=== PATIENT | male | born 1965 | race Caucasian/White ===

== ENCOUNTER 2017-04-20 19:27 | Observation (INO) | payer OTHER ==
[~2017-04-20] VITALS: Ht 177.8 cm; Wt 86.5 kg
[~2017-04-20 19:27] MED LIST: ASPCH81X PO; KFL/250 PO; METO-478 PO; NITR0.4S UT
[2017-04-20] MEDS ORDERED: ASPIRIN 81 MG CHEW PO STA (19:56)
[2017-04-20] MEDS ORDERED: ONDANSETRON INJ 2 MG/ML 2 ML VIAL IV STA (19:56)
--- NOTE | 2017-04-20 19:58 | EMERGENCY ROOM VISIT NOTE ---
History Report prepared by Cesia: Palomo Leiva Under the Supervision of: Dr. Juaquin Monahan M.D. First contact with patient: 19:35 Chief Complaint: CHEST PAIN Stated Complaint: TIGHTNESS OF CHEST, CARIAC HX, SOB, TINGLING History of Present Illness The patient is a 51 year old white male with a past medical history of a coronary stent placement who presents to the ED with a cc of constant chest heaviness that began last night wile sitting and relaxing. Positive arm numbness and tingling which resolved, a mild cough, and sweating last night. Negative shortness of breath, swelling in the legs, history of blood clots, recent car or plane travel, worsening with walking or lying down, fevers, chills. The patient reports that he went hiking and hunting yesterday, and he also drank a lot of caffeinated soda which is abnormal for him. He notes that he takes aspirin and Plavix. The patient denies any alcohol use, tobacco use, and drug use. Source of History: patient Onset: yesterday Position: chest Quality: other (heaviness) Timing: constant Associated Symptoms: + diaphoresis, + cough, No fevers, No chills, No SOB Note: Associated symptoms: left arm pain Review of Systems See HPI for pertinent positives and negatives. A total of ten systems were reviewed and were otherwise negative. Past Medical & Surgical Surgical Problems: (1) Stented coronary artery Social History Smoking Status: Current Every Day Smoker Marital Status: Housing Status: lives with family Occupation Status: employed Current/Historical Medications Scheduled Aspirin (Aspirin Chewable), 81 MG PO HS Atorvastatin (Lipitor), 40 MG PO HS Clopidogrel (Plavix), 75 MG PO HS Nitroglycerin (Nitrostat), 0.4 MG UT PRN Allergies Coded Allergies: No Known Allergies (Unverified , 04/20/17) Physical Exam Vital Signs Date Time Temp Pulse Resp B/P (MAP) Pulse Ox O2 Delivery O2 Flow Rate FiO2 04/20/17 20:42 79 04/20/17 20:02 96 Room Air 04/20/17 19:57 96 Room Air 04/20/17 19:30 36.8 84 16 149/98 96 Room Air Physical Exam GENERAL: Awake, alert, well-appearing, NAD HENT: Normocephalic, atraumatic. EYES: Normal conjunctiva. Sclera non-icteric. NECK: Supple. No nuchal rigidity. FROM. RESPIRATORY: CTAB, no rhonchi, wheezing, crackles CARDIAC: RRR, no MRG ABDOMEN: Soft, NTND, BS+ MSK: Negative Jasbir's sign. No calf pain. No chest wall TTP, no LE edema NEURO: GCS 15, CN 2-12 intact, moves all 4s on command SKIN: No rash or jaundice noted. Medical Decision & Procedures ER Provider Diagnostic Interpretation: Radiology results as stated below per my review and radiologist interpretation: CHEST ONE VIEW PORTABLE CLINICAL HISTORY: Chest pain. COMPARISON STUDY: No previous studies for comparison. FINDINGS: Lung volumes are normal. No pneumothorax or pleural effusion is present. Cardiac size is within normal limits. Pulmonary vascularity is normal. There is no consolidation to suggest pneumonia. IMPRESSION: No acute cardiopulmonary findings. Electronically signed by: Onel Cespedes M.D. 04/20/2017 8:55 PM Dictated Date/Time: 04/20/2017 8:55 PM Laboratory Results 04/20/17 19:57 Red Blood Count 4.52, Mean Corpuscular Volume 92.9, Mean Corpuscular Hemoglobin 33.6, Mean Corpuscular Hemoglobin Concent 36.2, Mean Platelet Volume 9.7, Neutrophils (%) (Auto) 64.1, Lymphocytes (%) (Auto) 27.3, Monocytes (%) (Auto) 6.8, Eosinophils (%) (Auto) 1.0, Basophils (%) (Auto) 0.5, Neutrophils # (Auto) 3.77, Lymphocytes # (Auto) 1.61, Monocytes # (Auto) 0.40, Eosinophils # (Auto) 0.06, Basophils # (Auto) 0.03 04/20/17 19:57 Test 04/20/17 19:57 White Blood Count 5.89 K/uL (4.8-10.8) Red Blood Count 4.52 M/uL (4.7-6.1) Hemoglobin 15.2 g/dL (14.0-18.0) Hematocrit 42.0 % (42-52) Mean Corpuscular Volume 92.9 fL (80-100) Mean Corpuscular Hemoglobin 33.6 pg (25-34) Mean Corpuscular Hemoglobin Concent 36.2 g/dl (32-36) Platelet Count 198 K/uL (130-400) Mean Platelet Volume 9.7 fL (7.4-10.4) Neutrophils (%) (Auto) 64.1 % Lymphocytes (%) (Auto) 27.3 % Monocytes (%) (Auto) 6.8 % Eosinophils (%) (Auto) 1.0 % Basophils (%) (Auto) 0.5 % Neutrophils # (Auto) 3.77 K/uL (1.4-6.5) Lymphocytes # (Auto) 1.61 K/uL (1.2-3.4) Monocytes # (Auto) 0.40 K/uL (0.11-0.59) Eosinophils # (Auto) 0.06 K/uL (0-0.5) Basophils # (Auto) 0.03 K/uL (0-0.2) RDW Standard Deviation 43.6 fL (36.4-46.3) RDW Coefficient of Variation 12.8 % (11.5-14.5) Immature Granulocyte % (Auto) 0.3 % Immature Granulocyte # (Auto) 0.02 K/uL (0.00-0.02) Prothrombin Time 10.5 SECONDS (9.0-12.0) Prothromb Time International Ratio 1.0 (0.9-1.1) Activated Partial Thromboplast Time 23.8 SECONDS (21.0-31.0) Partial Thromboplastin Ratio 0.9 Anion Gap 9.0 mmol/L (3-11) Est Creatinine Clear Calc Drug Dose 83.0 ml/min Estimated GFR () 90.2 Estimated GFR (Non- 77.9 BUN/Creatinine Ratio 16.5 (10-20) Calcium Level 8.7 mg/dl (8.5-10.1) Total Bilirubin 0.7 mg/dl (0.2-1) Direct Bilirubin 0.2 mg/dl (0-0.2) Aspartate Amino Transf (AST/SGOT) 34 U/L (15-37) Alanine Aminotransferase (ALT/SGPT) 56 U/L (12-78) Alkaline Phosphatase 76 U/L (45-117) Troponin I < 0.015 ng/ml (0-0.045) Pro-B-Type Natriuretic Peptide 11 pg/ml (0-900) Total Protein 7.8 gm/dl (6.4-8.2) Albumin 4.1 gm/dl (3.4-5.0) Lipase 197 U/L (73-393) Laboratory results reviewed by me Medications Administered Medications (Trade) Dose Ordered Sig/Ryan Route Start Time Stop Time Status Last Admin Dose Admin Nitroglycerin (Nitrostat Tab) 0.4 mg Q5M PRN SL 04/20/17 20:00 05/20/17 19:59 04/20/17 20:09 0.4 MG Aspirin (Aspirin Chew) 324 mg NOW STAT PO 04/20/17 19:56 04/20/17 19:58 DC 04/20/17 20:09 324 MG ECG Indication: chest pain Rate (beats per minute): 78 Rhythm: normal sinus Findings: other (Normal Interval. Normal axis. No STS changes or TWI) ED Course 1934: The patient was evaluated in room C4. A complete history and physical exam was performed. 2049: Discussed the patient's case Jabari Larios. The patient will be evaluated for further treatment and disposition. 2099: I reevaluated the patient, and I discussed the treatment plan with him and was agreeable. Medical Decision The patient is a 51 year old white male with a past medical history of a stent placement who presents to the ED with a cc of constant chest heaviness that began last night wile sitting and relaxing. Triage Nursing notes reviewed. The patient's presentation and history were concerning for etiologies such as cardiac ischemia, aortic dissection, pulmonary embolism, pneumonia, pneumothorax , musculoskeletal, infections, pericarditis, myocarditis, esophageal rupture, gastrointestinal, as well as others were entertained. Patient was seen and evaluated the bedside. Patient states that yesterday in the evening he did have some chest tightness. Patient also describes some numbness and tingling in his left upper extremity. He also describes some diaphoresis. Patient states that symptoms chest tightness makes him feel somewhat short of breath although he doesn't complain of any dyspnea on exertion no exertional chest pain. Patient denies any lower extremity swelling , recent car or plane travel, history of DVT or PE. Patient did not take any nitroglycerin to take a baby aspirin prior to arrival. Patient does see [facility] cardiology. Patient did have an LAD stent placed in 2011. Patient has not had recent provocative testing per patient. Patient received nitroglycerin and aspirin. Patient's pain mildly improved. He did describe this pain as chest tightness which she stated improved somewhat. Patient's EKG is unremarkable patient has a negative troponin. I did speak with the hospitalist team. The patient would probably benefit from further evaluation and treatment. Patient was admitted. Medication Reconcilliation Current Medication List: was personally reviewed by me Blood Pressure Screening Patient's blood pressure: Elevated blood pressure Monitored by the hospitalist Consults Time Called: 2044 Consulting Physician: Jabari Larios Returned Call: 2049 Discussed the patient's case with Jabari Larios. The patient will be evaluated for further treatment and disposition. Impression Primary Impression: Atypical chest pain Additional Impression: CAD S/P percutaneous coronary angioplasty Scribe Attestation The scribe's documentation has been prepared under my direction and personally reviewed by me in its entirety. I confirm that the note above accurately reflects all work, treatment, procedures, and medical decision making performed by me. Departure Information Dispostion Being Evaluated By Hospitalist Referrals Romel Bautista M.D. (PCP) Patient Instructions My [facility] Problem Qualifiers
[2017-04-20] MEDS ORDERED: NITROGLYCERIN 0.4 MG SL PER TAB CHARGE SL PRN ×2 (20:00→21:30)
[2017-04-20 20:06] LABS: BASO % 0.5 %; BASO ABS # 0.03 K/uL (0-0.2); COMPLETE YES; IG% 0.3 %; LYMPH % 27.3 %; LYMPH ABS # 1.61 K/uL (1.2-3.4); MEAN CELL VOLUME 92.9 fL (80-100); MEAN CORPUSCULAR HEMOGLOBIN 33.6 pg (25-34); MEAN CORPUSCULAR HGB CONC 36.2 g/dl (32-36); MEAN PLATELET VOLUME 9.7 fL (7.4-10.4); MONO % 6.8 %; NEUT % 64.1 %; PLATELET COUNT 198 K/uL (130-400); RED BLOOD COUNT 4.52 M/uL (4.7-6.1); WHITE BLOOD COUNT 5.89 K/uL (4.8-10.8)
[2017-04-20] MEDS ORDERED: CLOP1TAB15 PO (20:16)
[2017-04-20] MEDS ORDERED: ATOR-24 PO (20:16)
[2017-04-20 20:24] LABS: ALT/SGPT 56 U/L (12-78); AST/SGOT 34 U/L (15-37); BLOOD UREA NITROGEN 18 mg/dl (7-18); BUN/CREATININE RATIO 16.5 (10-20); CALCIUM 8.7 mg/dl (8.5-10.1); CARBON DIOXIDE 27 mmol/L (21-32); CHLORIDE 106 mmol/L (98-107); GLUCOSE 99 mg/dl (70-99); POTASSIUM 3.8 mmol/L (3.5-5.1); SODIUM 142 mmol/L (136-145)
[2017-04-20 20:26] LABS: PARTIAL THROMBOPLASTIN RATIO 0.9; PROTHROMBIN TIME (PATIENT) 10.5 SECONDS (9.0-12.0)
[2017-04-20 20:30] LABS: ALKALINE PHOSPHATASE 76 U/L (45-117)
--- NOTE | 2017-04-20 20:57 | DIAGNOSTIC IMAGING REPORT ---
CHEST ONE VIEW PORTABLE CLINICAL HISTORY: Chest pain. COMPARISON STUDY: No previous studies for comparison. FINDINGS: Lung volumes are normal. No pneumothorax or pleural effusion is present. Cardiac size is within normal limits. Pulmonary vascularity is normal. There is no consolidation to suggest pneumonia. IMPRESSION: No acute cardiopulmonary findings. Electronically signed by: Onel Cespedes M.D. 04/20/2017 8:55 PM Dictated Date/Time: 04/20/2017 8:55 PM
[2017-04-20] MEDS ORDERED: ATORVASTATIN 40 MG TAB PO SCH (21:30)
[2017-04-20] MEDS ORDERED: CLOPIDOGREL BISULFATE 75 MG TAB PO SCH (21:30)
--- NOTE | 2017-04-20 21:50 | History and Physical ---
History & Physical Date & Time of Service: Apr 20, 2017 ~ 21:00 Chief Complaint: Chest Pain Primary Care Physician: Romel Bautista M.D. History of Present Illness 51 year old male who presents to the ED with chest pain. Patient reports he developed chest pain last evening while at rest. He reports the pain as located in the middle of his chest and describes it as a pressure. He also had associated diaphoresis. He reports symptoms lasted for 1-2 hours. He then went to bed. When he woke up this morning he reports the discomfort was still there however not as severe. He rates his discomfort throughout the day today as a 1-2 /10. He notes that yesterday he was out hunting for most of the day. He also drank soda throughout the day which he typically does not do. He denies any causative or alleviating factors. He received SL nitro in the ED which had no effect on the chest pain. He reports he has felt like it was hard for him to take a deep breath however denies shortness of breath. He denies lightheadedness , dizziness, or syncopal events. No abdominal pain, nausea, vomiting, or diarrhea. He denies fever and chills. No urinary symptoms. In the ED, patient's initial troponin is negative and EKG does not show any acute ST changes. He was given full dose ASA and SL nitro x 1. Past Medical/Surgical History Medical Problems: (1) CAD (coronary artery disease) Permanent Comment: 04/2012 - TASH to LAD Status: Chronic Surgical Problems: (1) H/O arthroscopic knee surgery Status: Chronic (2) History of vasectomy Status: Chronic Family History FH: CAD (coronary artery disease) FATHER Social History Smoking Status: Former Smoker Alcohol Use: ~ 10 beers/week Marital Status: Occupational Status: employed Immunizations History of Tetanus Vaccine?: Yes Tetanus Immunization Date: Jul 11, 2012 Allergies Coded Allergies: No Known Allergies (Unverified , 04/20/17) Home Medications Scheduled Aspirin (Aspirin Chewable), 81 MG PO HS Atorvastatin (Lipitor), 40 MG PO HS Clopidogrel (Plavix), 75 MG PO HS Nitroglycerin (Nitrostat), 0.4 MG UT PRN Review of Systems ROS per HPI, all other systems reviewed and negative Physical Exam Vital Signs Date Time Temp Pulse Resp B/P (MAP) Pulse Ox O2 Delivery O2 Flow Rate FiO2 04/20/17 20:42 79 04/20/17 20:02 96 Room Air 04/20/17 19:57 96 Room Air 04/20/17 19:30 36.8 84 16 149/98 96 Room Air General Appearance: WD/WN, no apparent distress Head: normocephalic, atraumatic Eyes: normal inspection, EOMI, sclerae normal ENT: hearing grossly normal, + pertinent finding (mucous membranes moist) Neck: supple, no JVD, trachea midline Respiratory/Chest: chest non-tender, lungs clear, normal breath sounds, no respiratory distress Cardiovascular: regular rate, rhythm, no edema, normal peripheral pulses Abdomen/GI: normal bowel sounds, non tender, soft, no organomegaly Extremities/Musculoskelatal: normal inspection, no calf tenderness, normal capillary refill Neurologic/Psych: no motor/sensory deficits, alert, normal mood/affect, oriented x 3 Skin: normal color, warm/dry Diagnostics Laboratory Results Results Past 24 Hours Test 04/20/17 19:57 Range/Units White Blood Count 5.89 4.8-10.8 K/uL Red Blood Count 4.52 4.7-6.1 M/uL Hemoglobin 15.2 14.0-18.0 g/dL Hematocrit 42.0 42-52 % Mean Corpuscular Volume 92.9 80-100 fL Mean Corpuscular Hemoglobin 33.6 25-34 pg Mean Corpuscular Hemoglobin Concent 36.2 32-36 g/dl Platelet Count 198 130-400 K/uL Mean Platelet Volume 9.7 7.4-10.4 fL Neutrophils (%) (Auto) 64.1 % Lymphocytes (%) (Auto) 27.3 % Monocytes (%) (Auto) 6.8 % Eosinophils (%) (Auto) 1.0 % Basophils (%) (Auto) 0.5 % Neutrophils # (Auto) 3.77 1.4-6.5 K/uL Lymphocytes # (Auto) 1.61 1.2-3.4 K/uL Monocytes # (Auto) 0.40 0.11-0.59 K/uL Eosinophils # (Auto) 0.06 0-0.5 K/uL Basophils # (Auto) 0.03 0-0.2 K/uL RDW Standard Deviation 43.6 36.4-46.3 fL RDW Coefficient of Variation 12.8 11.5-14.5 % Immature Granulocyte % (Auto) 0.3 % Immature Granulocyte # (Auto) 0.02 0.00-0.02 K/uL Prothrombin Time 10.5 9.0-12.0 SECONDS Prothromb Time International Ratio 1.0 0.9-1.1 Activated Partial Thromboplast Time 23.8 21.0-31.0 SECONDS Partial Thromboplastin Ratio 0.9 Sodium Level 142 136-145 mmol/L Potassium Level 3.8 3.5-5.1 mmol/L Chloride Level 106 98-107 mmol/L Carbon Dioxide Level 27 21-32 mmol/L Anion Gap 9.0 3-11 mmol/L Blood Urea Nitrogen 18 7-18 mg/dl Creatinine 1.10 0.60-1.40 mg/dl Est Creatinine Clear Calc Drug Dose 83.0 ml/min Estimated GFR () 90.2 Estimated GFR (Non- 77.9 BUN/Creatinine Ratio 16.5 10-20 Random Glucose 99 70-99 mg/dl Calcium Level 8.7 8.5-10.1 mg/dl Total Bilirubin 0.7 0.2-1 mg/dl Direct Bilirubin 0.2 0-0.2 mg/dl Aspartate Amino Transf (AST/SGOT) 34 15-37 U/L Alanine Aminotransferase (ALT/SGPT) 56 12-78 U/L Alkaline Phosphatase 76 45-117 U/L Troponin I < 0.015 0-0.045 ng/ml Pro-B-Type Natriuretic Peptide 11 0-900 pg/ml Total Protein 7.8 6.4-8.2 gm/dl Albumin 4.1 3.4-5.0 gm/dl Lipase 197 73-393 U/L Diagnostic Radiology CXR IMPRESSION: No acute cardiopulmonary findings. Impression Assessment and Plan CHEST PAIN, HX CAD - admit to tele - patient presenting with chest pain that started last night with associated diaphoresis - s/p TASH to LAD 04/2012 - initial troponin negative, EKG without acute ST changes - continue to cycle cardiac enzymes, if negative stress echo in AM - PRN nitro and EKG with further chest pain - cardio consult - continue ASA, Plavix, and statin; noted to be intolerant to beta sherwin in the past due to fatigue - ? if discomfort is from patient's large amount of caffeine intake yesterday DVT PROPHYLAXIS - SQ Lovenox DISPO - The patient will be placed as observation status for now until further work up is complete. VTE Prophylaxis VTE Risk Assessment Done? Y/N: Yes Risk Level: Moderate
--- NOTE | 2017-04-20 21:53 | History and Physical ---
History & Physical Date of Service Apr 20, 2017. History & Physical This is a 51 year old male with a PMH of CAD s/p stent in 2011 - presents with dyspnea on exertion and chest pressure x1 day. States that he was hunting yesterday and was doing fine with the hiking. Afterwards, a few hours later in the evening time, he noted some shortness of breath and chest pressure in the center of the chest. No radiation of pain. States he also developed some sweats and felt his heart beating harder than normal. After he slept, most symptoms subsided, but did not completely resolve, so he came in to the ER for further evaluation. Currently, he is resting comfortably, denies nausea/vomiting/ diarrhea, denies fevers/chills. VITALS: Last Vital Signs Documentation Date Time Temp Pulse Resp B/P (MAP) Pulse Ox O2 Delivery O2 Flow Rate FiO2 04/20/17 21:37 76 18 120/83 97 Room Air 04/20/17 19:30 36.8 GEN: no acute distress HEENT: NC/AT CVS: +S1, S2, RRR LUNGS: CTA b/l, no wheezing ABD: soft, NT/ND EXT: no edema NEURO: No focal deficits Chest Pain r/o ACS in the setting of CAD initial cardiac enzymes negative EKG NSR, no ST-T wave changes noted he's had a stent put in in 2011 has been doing fairly well since Toprol was stopped due to side effect, Lipitor decreased due to myalgias now he takes Aspirin, Plavix, Lipitor 40mg daily - which we can continue resting echo, trend enzymes, fasting lipid profile in AM stress test in AM consulted cardiology for further input DVT ppx Lovenox FULL CODE
[2017-04-20] MEDS ORDERED: ENOXAPARIN 40 MG/0.4 ML SYR SC SCH (22:00)
[2017-04-20] MEDS ORDERED: IV FLUIDS COMPLETED PRN (22:00)
[2017-04-20 22:13] VITALS: BP_SYST 145; BP_SYST 155; BP_DIAS 103; BP_DIAS 92; PULSE 78; TEMP 36.5; O2SAT 100; Ht 177.8 cm; Wt 86.5 kg
[2017-04-21] VITALS: O2SAT 100
[2017-04-21 04:00] VITALS: O2SAT 100
[2017-04-21 04:14] VITALS: BP 135/88; PULSE 83; TEMP 36.3; O2SAT 98
[2017-04-21 07:06] LABS: HEMATOCRIT 41.7 % (42-52); MEAN CELL VOLUME 93.9 fL (80-100); MEAN CORPUSCULAR HEMOGLOBIN 32.4 pg (25-34); MEAN CORPUSCULAR HGB CONC 34.5 g/dl (32-36); MEAN PLATELET VOLUME 9.4 fL (7.4-10.4); PLATELET COUNT 169 K/uL (130-400); RED BLOOD COUNT 4.44 M/uL (4.7-6.1); WHITE BLOOD COUNT 5.82 K/uL (4.8-10.8)
[2017-04-21 07:28] LABS: BLOOD UREA NITROGEN 17 mg/dl (7-18); BUN/CREATININE RATIO 18.2 (10-20); CALCIUM 8.8 mg/dl (8.5-10.1); CARBON DIOXIDE 27 mmol/L (21-32); CHLORIDE 107 mmol/L (98-107); CREATININE 0.92 mg/dl (0.60-1.40); GLUCOSE 105 mg/dl (70-99); POTASSIUM 4.3 mmol/L (3.5-5.1); SODIUM 141 mmol/L (136-145)
[2017-04-21 08:00] VITALS: BP 138/82; PULSE 76; TEMP 36.5; O2SAT 100; O2SAT 98
[2017-04-21] MEDS ORDERED: ASPIRIN 81 MG ECTAB PO SCH (09:00)
[2017-04-21 11:44] VITALS: BP 125/90; PULSE 90; TEMP 36.8; O2SAT 97
--- NOTE | 2017-04-21 11:52 | Progress Note ---
Internal Med Progress Note Date of Service: Apr 21, 2017. Provider Documentation: SUBJECTIVE: Seen and examined at bedside Had stress test this morning Chest pain resolved No other complaints Doing well OBJECTIVE: Vital Signs-as noted below Physical Exam: General Appearance:Moderately built and nourished, no apparent distress Head: normocephalic, Atraumatic Eyes: normal inspection, EOMI, PERRL Neck: supple, Trachea midline Respiratory/Chest: Normal breath sounds, CTA Cardiovascular: S1, S2, No murmur Abdomen/GI:Soft, Non tender, Bowel sounds present Extremities/Musculoskelatal:normal inspection, no edema Neurologic/Psych:AAOX3, grossly no focal neurological deficits Skin: normal color, warm Lab data as noted below. ASSESSMENT & PLAN: Chest Pain: Ruled out ACS H/O CAD S/P stent in 2011 Cardiac enzymes: negative EKG: NSR, no ST-T wave changes Stress test:negative. Official report is pending (Discussed with ) HO/ intolerance to BB in past Continue Aspirin, Plavix, Lipitor DVT px Lovenox SQ Code Status: FULL CODE Disposition: Plan to discharge home today Follow up with on 04/28/17 at 10:45am ( not available for earlier appointment) Follow up with your oceanology teacher as advised Seek immediate medical attention if your symptoms reoccur or worsen Vital Signs: Date Time Temp Pulse Resp B/P (MAP) Pulse Ox O2 Delivery O2 Flow Rate FiO2 04/21/17 08:00 36.5 76 16 138/82 (100) 98 Room Air 04/21/17 08:00 100 Room Air 04/21/17 04:14 36.3 83 16 135/88 (104) 98 Room Air 04/21/17 04:00 100 Room Air 04/21/17 00:00 100 Room Air 04/20/17 22:13 36.5 78 18 155/103 100 Room Air 145/92 04/20/17 21:51 76 18 120/83 97 04/20/17 21:37 76 18 120/83 97 Room Air 04/20/17 20:42 79 04/20/17 20:02 96 Room Air 04/20/17 19:57 96 Room Air 04/20/17 19:30 36.8 84 16 149/98 96 Room Air Lab Results: Results Past 24 Hours Test 04/20/17 19:57 04/21/17 00:55 04/21/17 06:54 Range/Units White Blood Count 5.89 5.82 4.8-10.8 K/uL Red Blood Count 4.52 4.44 4.7-6.1 M/uL Hemoglobin 15.2 14.4 14.0-18.0 g/dL Hematocrit 42.0 41.7 42-52 % Mean Corpuscular Volume 92.9 93.9 80-100 fL Mean Corpuscular Hemoglobin 33.6 32.4 25-34 pg Mean Corpuscular Hemoglobin Concent 36.2 34.5 32-36 g/dl Platelet Count 198 169 130-400 K/uL Mean Platelet Volume 9.7 9.4 7.4-10.4 fL Neutrophils (%) (Auto) 64.1 % Lymphocytes (%) (Auto) 27.3 % Monocytes (%) (Auto) 6.8 % Eosinophils (%) (Auto) 1.0 % Basophils (%) (Auto) 0.5 % Neutrophils # (Auto) 3.77 1.4-6.5 K/uL Lymphocytes # (Auto) 1.61 1.2-3.4 K/uL Monocytes # (Auto) 0.40 0.11-0.59 K/uL Eosinophils # (Auto) 0.06 0-0.5 K/uL Basophils # (Auto) 0.03 0-0.2 K/uL RDW Standard Deviation 43.6 44.0 36.4-46.3 fL RDW Coefficient of Variation 12.8 12.8 11.5-14.5 % Immature Granulocyte % (Auto) 0.3 % Immature Granulocyte # (Auto) 0.02 0.00-0.02 K/uL Prothrombin Time 10.5 9.0-12.0 SECONDS Prothromb Time International Ratio 1.0 0.9-1.1 Activated Partial Thromboplast Time 23.8 21.0-31.0 SECONDS Partial Thromboplastin Ratio 0.9 Sodium Level 142 141 136-145 mmol/L Potassium Level 3.8 4.3 3.5-5.1 mmol/L Chloride Level 106 107 98-107 mmol/L Carbon Dioxide Level 27 27 21-32 mmol/L Anion Gap 9.0 7.0 3-11 mmol/L Blood Urea Nitrogen 18 17 7-18 mg/dl Creatinine 1.10 0.92 0.60-1.40 mg/dl Est Creatinine Clear Calc Drug Dose 83.0 99.2 ml/min Estimated GFR () 90.2 112.0 Estimated GFR (Non- 77.9 96.6 BUN/Creatinine Ratio 16.5 18.2 10-20 Random Glucose 99 105 70-99 mg/dl Calcium Level 8.7 8.8 8.5-10.1 mg/dl Total Bilirubin 0.7 0.2-1 mg/dl Direct Bilirubin 0.2 0-0.2 mg/dl Aspartate Amino Transf (AST/SGOT) 34 15-37 U/L Alanine Aminotransferase (ALT/SGPT) 56 12-78 U/L Alkaline Phosphatase 76 45-117 U/L Troponin I < 0.015 < 0.015 < 0.015 0-0.045 ng/ml Pro-B-Type Natriuretic Peptide 11 0-900 pg/ml Total Protein 7.8 6.4-8.2 gm/dl Albumin 4.1 3.4-5.0 gm/dl Lipase 197 73-393 U/L Creatine Kinase MB 1.3 1.1 0.5-3.6 ng/ml Creatine Kinase MB Ratio 0-3.0
--- NOTE | 2017-04-21 11:59 | Discharge Summary ---
Discharge Summary Date of Service Apr 21, 2017. Discharge Summary Admission Date: Apr 20, 2017 at 21:19 Discharge Date: Apr 21, 2017 Discharge Disposition: Home Principal Diagnosis: Chest Pain Procedures: Stress test: -- Conclusions -- STRESS STUDY: Normal exercise stress echocardiogram. No echocardiographic or ECG evidence of myocardial ischemia having achieved heart rate adequate for diagnostic purposes. CXR: No acute cardiopulmonary findings. Consultations: None Pending Studies/Follow-Up: Follow up with on 04/28/17 at 10:45am ( not available for earlier appointment) Follow up with your rand maker as advised Seek immediate medical attention if your symptoms reoccur or worsen Medication Reconciliation Continued Medications: Aspirin (Aspirin Chewable) 81 Mg Chew 81 MG PO HS, TAB Atorvastatin (Lipitor) 40 Mg Tab 40 MG PO HS, TAB Clopidogrel (Plavix) 75 Mg Tab 75 MG PO HS, TAB Nitroglycerin (Nitrostat) 0.4 Mg Sub 0.4 MG UT PRN, BTL Admission Information HPI (per Admitting provider): 51 year old male who presents to the ED with chest pain. Patient reports he developed chest pain last evening while at rest. He reports the pain as located in the middle of his chest and describes it as a pressure. He also had associated diaphoresis. He reports symptoms lasted for 1-2 hours. He then went to bed. When he woke up this morning he reports the discomfort was still there however not as severe. He rates his discomfort throughout the day today as a 1-2 /10. He notes that yesterday he was out hunting for most of the day. He also drank soda throughout the day which he typically does not do. He denies any causative or alleviating factors. He received SL nitro in the ED which had no effect on the chest pain. He reports he has felt like it was hard for him to take a deep breath however denies shortness of breath. He denies lightheadedness , dizziness, or syncopal events. No abdominal pain, nausea, vomiting, or diarrhea. He denies fever and chills. No urinary symptoms. In the ED, patient's initial troponin is negative and EKG does not show any acute ST changes. He was given full dose ASA and SL nitro x 1. Physical Exam (per Admitting): General Appearance: WD/WN, no apparent distress Head: normocephalic, atraumatic Eyes: normal inspection, EOMI, sclerae normal ENT: hearing grossly normal, + pertinent finding (mucous membranes moist) Neck: supple, no JVD, trachea midline Respiratory/Chest: chest non-tender, lungs clear, normal breath sounds, no respiratory distress Cardiovascular: regular rate, rhythm, no edema, normal peripheral pulses Abdomen/GI: normal bowel sounds, non tender, soft, no organomegaly Extremities/Musculoskelatal: normal inspection, no calf tenderness, normal capillary refill Neurologic/Psych: no motor/sensory deficits, alert, normal mood/affect, oriented x 3 Skin: normal color, warm/dry Hospital Course Chest Pain: Ruled out ACS H/O CAD S/P stent in 2011 Cardiac enzymes: negative EKG: NSR, no ST-T wave changes Stress test:negative. Official report is pending (Discussed with ) HO/ intolerance to BB in past Continue Aspirin, Plavix, Lipitor DVT px Lovenox SQ Code Status: FULL CODE Disposition: Plan to discharge home today Follow up with on 04/28/17 at 10:45am ( not available for earlier appointment) Follow up with your rand maker as advised Seek immediate medical attention if your symptoms reoccur or worsen Total time spent on discharge = This includes examination of the patient, discharge planning, medication reconciliation, and communication with other providers. Discharge Instructions Discharge Instructions Date of Service Apr 21, 2017. Admission Reason for Admission: Chest Pain Discharge Discharge Diagnosis / Problem: Chest Pain Discharge Goals Goal(s): Decrease discomfort, Improve function Activity Recommendations Activity Limitations: resume your previous activity Exercise/Sports Limitations: as tolerated . Instructions / Follow-Up Instructions / Follow-Up Follow up with on 04/28/17 at 10:45am ( not available for earlier appointment) Follow up with your rand maker as advised Seek immediate medical attention if your symptoms reoccur or worsen Current Hospital Diet Patient's current hospital diet: AHA Diet (Heart Healthy) Discharge Diet Recommended Diet: AHA Diet (Heart Healthy) Pending Studies Studies pending at discharge: no Medical Emergencies . Who to Call and When: Medical Emergencies: If at any time you feel your situation is an emergency, please call 911 immediately. . Non-Emergent Contact Non-Emergency issues call your: Primary Care Provider, Sterilizer Operator Call Non-Emergent contact if: you have a fever, your pain is not controlled, your pain is worsening, your pain is unusual for you, your pain is concerning you, you have any medication questions Seek immediate medical attention if your symptoms reoccur or worsen . . "Provider Documentation" section prepared by Kenton Benson. . VTE Core Measure Inpt VTE Proph given/why not?: Enoxaparin (Lovenox)SQ <Electronically signed by Kenton Benson MD> Signed: 04/21/17 [id number] Signed: The status of this report is Signed * If report status is Draft, the document has not been finalized by the responsible provider.
[2017-04-21 12:05] VITALS: BP 125/90; PULSE 90; TEMP 36.8; O2SAT 97
--- NOTE | 2017-04-21 12:20 | EXERCISE STRESS ECHO ---
*NOTICE TO RECEIVING [employer] This information is strictly Confidential and protected under [place] law. [place] law prohibits you from making any further disclosure of this information unless further disclosure is expressly permitted by the written consent of the person to whom it pertains or is authorized by law. A general authorization for the release of medical or other information is not sufficient for this purpose. Hospital accepts no responsibility if the information is made available to any other person, INCLUDING THE PATIENT. Interpretation Summary * Name: JEANETTE NAPOLES Study Date: 04/21/2017 08:00 AM BP: 125/82 mmHg * Patient Location: [facility]\S\[id number]\S\1 HR: 61 * : 1965 (M/d/yyyy) Gender: Male Height: 70 in * Age: 51 yrs Ethnicity: [place] Weight: 190 lb * Ordering Physician: Francine Charlton * Referring Physician: Nithin Ceja * Performed By: Rizwana Bethea RDCS * * Reason For Study: CHEST PAIN * BSA: 2.0 m2 * STRESS STUDY: Normal exercise stress echocardiogram. No echocardiographic or ECG evidence of myocardial ischemia having achieved heart rate adequate for diagnostic purposes. * -- Conclusions -- * STRESS STUDY: Normal exercise stress echocardiogram. No echocardiographic or ECG evidence of myocardial ischemia having achieved heart rate adequate for diagnostic purposes. Procedure Details * A contrast injection of Definity was performed to improve assessment of LV function. * Contrast was injected into an intravenous site in the left arm. * One vial of Definity ultrasound contrast was diluted in normal saline to a total volume of 10 ml. A total of '4' ml of solution was administered during imaging. * Lot # [id number] of Definity utilized for procedure. * Expiration date MAY 17. * The attending nurse who injected the contrast agent was CHIP ASHTON RN. Left Ventricle * The left ventricle is normal in size. * There is normal left ventricular wall thickness. * Ejection Fraction = 50-55%. * The left ventricular wall motion is normal. Right Ventricle * The right ventricle is normal size. * The right ventricular systolic function is normal. Atria * The left atrial size is normal. * Right atrial size is normal. * The interatrial septum is intact with no evidence for an atrial septal defect. Mitral Valve * The mitral valve is normal in structure and function. Tricuspid Valve * The tricuspid valve is normal in structure and function. Aortic Valve * The aortic valve is normal in structure and function. Pulmonic Valve * The pulmonic valve is not well visualized. Great Vessels * The aortic root and proximal ascending aorta are normal sized. Pericardium * There is no pericardial effusion. Stress Parameters * Normal baseline electrocardiogram. * The stress ECG response was normal * Stress ECG: No ST changes. No arrhythmias. * The stress portion of this study was personally supervised by the undersigned interpreting physician. * Rest heart rate was '61' BPM. * Rest blood pressure was '125/82' * Maximum heart rate achieved was 160 bpm. * Maximum heart rate was 94 % of maximum age-predicted heart rate. * Maximum blood pressure was '195/90' * Total exercise time was '9:00' * Maximum exercise MET level achieved was '10.10' METS * Maximum treadmill speed was '3.40' miles per hour. * Maximum treadmill elevation was '14.00'% grade. * Exercise was terminated due to 'ACHIEVING TARGET HR' MMode 2D Measurements and Calculations IVSd 1.0 cm IVSs 1.8 cm LVIDd 5.5 cm LVIDs 4.1 cm LVPWd 1.2 cm LVPWs 1.6 cm IVS/LVPW 0.86 FS 26.1 % EDV(Teich) 146.7 ml ESV(Teich) 72.3 ml EF(Teich) 50.7 % EDV(cubed) 165.3 ml ESV(cubed) 66.7 ml EF(cubed) 59.6 % % IVS thick 82.7 % % LVPW thick 39.0 % LV mass(C)d 238.0 grams LV mass(C)dI 116.5 grams/m\S\2 LV mass(C)s 299.4 grams LV mass(C)sI 146.6 grams/m\S\2 SV(Teich) 74.4 ml SI(Teich) 36.4 ml/m\S\2 SV(cubed) 98.6 ml SI(cubed) 48.3 ml/m\S\2 Ao root diam 3.2 cm Ao root area 7.9 cm\S\2 LA dimension 4.1 cm LA/Ao 1.3 LVAd ap4 25.5 cm\S\2 LVLd ap4 8.5 cm EDV(MOD-sp4) 67.4 ml EDV(sp4-el) 65.0 ml LVAs ap4 15.5 cm\S\2 LVLs ap4 6.9 cm ESV(MOD-sp4) 31.1 ml ESV(sp4-el) 29.5 ml EF(MOD-sp4) 53.8 % EF(sp4-el) 54.6 % LVAd ap2 23.9 cm\S\2 LVLd ap2 7.7 cm EDV(MOD-sp2) 62.7 ml EDV(sp2-el) 62.9 ml LVAs ap2 14.9 cm\S\2 LVLs ap2 6.5 cm ESV(MOD-sp2) 29.4 ml ESV(sp2-el) 29.3 ml EF(MOD-sp2) 53.1 % EF(sp2-el) 53.4 % LVLd %diff -9.85 % EDV(MOD-bp) 67.7 ml LVLs %diff -6.77 % ESV(MOD-bp) 30.7 ml EF(MOD-bp) 54.6 % SV(MOD-sp4) 36.3 ml SI(MOD-sp4) 17.8 ml/m\S\2 SV(MOD-sp2) 33.3 ml SI(MOD-sp2) 16.3 ml/m\S\2 SV(MOD-bp) 37.0 ml SI(MOD-bp) 18.1 ml/m\S\2 SV(sp4-el) 35.5 ml SI(sp4-el) 17.4 ml/m\S\2 SV(sp2-el) 33.6 ml SI(sp2-el) 16.5 ml/m\S\2 Doppler Measurements and Calculations MV E max justus 75.5 cm/sec MV A max justus 61.9 cm/sec MV E/A 1.2 MV dec time 0.20 sec Ao V2 max 99.2 cm/sec Ao max PG 3.9 mmHg Ao max PG (full) 1.2 mmHg LV V1 max PG 2.8 mmHg LV V1 max 83.0 cm/sec
== END 2017-04-21 12:11 | disposition home or self-care (01) ==
LOC: C.EDB 19:29 → C.MED 21:19 → CANRESERV 21:30 → ENRESERV 21:30
PROVIDERS: ADMIT Family Medicine; ATTEND Internal Medicine
DX: R07.89 Other chest pain (principal); F17.210 Nicotine dependence, cigarettes, uncomplicated; I25.10 Atherosclerotic heart disease of native coronary artery without angina pectoris; Z98.61 Coronary angioplasty status